=== PATIENT | male | born 1965 | race Two or more races ===

== ENCOUNTER 2018-03-24 10:45 | Emergency (ER) | payer OTHER ==
[~2018-03-24] VITALS: Ht 180.3 cm; Wt 84.8 kg
[2018-03-24 11:04] VITALS: BP 132/88
[2018-03-24] MEDS ORDERED: Ketorolac 30mg Inj IM ONE (11:30)
[2018-03-24] MEDS ORDERED: Methocarbamol 750mg tab ORAL ONE (11:30)
[2018-03-24] MEDS ORDERED: LIDODERM700 M1 TOPIC (11:41)
[2018-03-24] MEDS ORDERED: ROBAXIN-750750 MG PO (11:41)
[2018-03-24] MEDS ORDERED: IBUPROFEN600 MG ORAL (11:41)
[2018-03-24] MEDS ORDERED: NORCO 5-325 TA1 EACH ORAL (11:41)
[2018-03-24 11:59] VITALS: BP 132/88
--- NOTE | 2018-03-24 13:02 | Emergency Room Report ---
History of Present Illness General Chief Complaint: Back Pain-No Injury Source: Patient Present Illness HPI 52-year-old male presents ED complaining of back pain. Started 2 days ago. Denies any injury. Pain is dull, 8 out of 10, nonradiating. Worse with bending and twisting. Denies any bowel or bladder incontinence. Denies any leg or motor weakness. No other aggravating relieving factors. Denies any other associated symptoms Allergies: Coded Allergies: No Known Allergies (Unverified , 03/24/18) Patient History Past Medical History: none Past Surgical History: none Pertinent Family History: none Social History: Denies: smoking, alcohol use, drug use Immunizations: UTD Reviewed Nursing Documentation: PMH: Agreed; PSxH: Agreed Nursing Documentation-PMH Past Medical History: No Stated History Review of Systems All Other Systems: negative except mentioned in HPI Physical Exam Vital Signs Date Time Temp Pulse Resp B/P (MAP) Pulse Ox O2 Delivery O2 Flow Rate FiO2 03/24/18 10:48 98.0 64 18 132/88 97 Room Air 98.1 Sp02 EP Interpretation: reviewed, normal General Appearance: no apparent distress, alert, GCS 15, non-toxic Head: normocephalic, atraumatic Eyes: bilateral eye normal inspection, bilateral eye PERRL ENT: hearing grossly normal, normal pharynx, no angioedema, normal voice Neck: full range of motion, supple/symm/no masses Respiratory: chest non-tender, lungs clear, normal breath sounds, speaking full sentences Cardiovascular #1: regular rate, rhythm, no edema Cardiovascular #2: 2+ carotid (R), 2+ carotid (L), 2+ radial (R), 2+ radial (L) , 2+ dorsalis pedis (R), 2+ dorsalis pedis (L) Gastrointestinal: normal bowel sounds, non tender, soft, non-distended, no guarding, no rebound Rectal: deferred Genitourinary: normal inspection, no CVA tenderness, no vertebral tenderness Musculoskeletal: back normal, gait/station normal, normal range of motion, tender - paraspinal lumbar tenderness Neurologic: alert, oriented x3, responsive, motor strength/tone normal, SLR negative, sensory intact, speech normal Psychiatric: judgement/insight normal, memory normal, mood/affect normal, no suicidal/homicidal ideation Reflexes: 3+ bicep (R), 3+ bicep (L), 3+ tricep (R), 3+ tricep (L), 3+ knee (R) , 3+ knee (L) Skin: normal color, no rash, warm/dry, well hydrated Lymphatic: no adenopathy Medical Decision Making Diagnostic Impression: Primary Impression: Back pain Qualified Codes: M54.5 - Low back pain ER Course Hospital Course 52-year-old male presents ED complaining of lower back pain. No evidence of trauma Differential diagnoses include: pyelonephritis, kidney stone, muscle strain, Lspine fracture Clinical course Patient placed on stretcher. After initial history, physical exam reveals a middle-aged male in no acute distress. There is no vertebral body tenderness. There is paraspinal lumbar tenderness bilaterally. Negative straight leg raise. 5 out of 5 motor strength bilaterally. Discussed findings with the patient. No indication for imaging at this time. No neurological deficits. No trauma. We will attempt conservative management with NSAIDs, lidocaine patch, muscle relaxers. Patient given Toradol, Robaxin in ED. Recommend close follow-up with PMD Diagnosis - back pain Stable and discharged to home with prescription for Motrin, Robaxin, Lidoderm patch. Followup with PMD. Return to ED if symptoms recur or worsen Last Vital Signs Date Time Temp Pulse Resp B/P (MAP) Pulse Ox O2 Delivery O2 Flow Rate FiO2 03/24/18 11:59 98.1 18 132/88 97 Room Air 208.6 03/24/18 10:48 64 Status: improved Disposition: HOME, SELF-CARE Condition: Stable Scripts Hydrocodone Bit/Acetaminophen 5-325* ([place] 5-325*) 1 Each Tablet 1 TAB ORAL Q6H PRN for For Pain, #10 TAB 0 Refills Prov: Ronan Leonard MD 03/24/18 Lidocaine (Lidoderm) 1 Each Adh..patch 1 PATCH TOPIC DAILY, #7 PATCH 0 Refills Patch(es) may remain in place for up to 12 hours in any 24-hour period. Prov: Ronan Leonard MD 03/24/18 Methocarbamol* (ROBAXIN-750*) 750 Mg Tablet 750 MG PO TID, #21 TAB 0 Refills Prov: Ronan Leonard MD 03/24/18 Ibuprofen* (MOTRIN*) 600 Mg Tablet 600 MG ORAL Q8H PRN for For Pain, #30 TAB 0 Refills Prov: Ronan Leonard MD 03/24/18 Referrals: [facility],REFERRING (PCP) NOT CHOSEN [facility],REFERRING Departure Forms: Return to Work Return to Work Date: Mar 26, 2018 Work Restrictions: No Heavy Lifting Patient Instructions: Back Pain, Adult Ronan Leonard MD Mar 24, 2018 13:02
== END 2018-03-24 11:59 | disposition home or self-care (01) ==
LOC: EMR 11:31
DX: M54.5 Low back pain (principal)
CPT/HCPCS: 96372; 99284; J1885

== ENCOUNTER 2018-08-08 06:18 | Day surgery (SDC) | payer OTHER ==
[~2018-08-08] VITALS: Ht 180.3 cm; Wt 83.5 kg
[2018-08-08] VITALS (10 sets, daily range): BP systolic 103–129; BP diastolic 64–85
[~2018-08-08 06:18] MED LIST: IBUPROFEN600 MG ORAL; LIDODERM700 M1 TOPIC; NORCO 5-325 TA1 EACH ORAL; ROBAXIN-750750 MG PO
--- NOTE | 2018-08-08 06:37 | Anethesia Preoperative Eval ---
Anesthesia Pre-op PMH/ROS General Date of Evaluation: Aug 08, 2018 Time of Evaluation: 06:36 Anesthesiologist: nile ASA Score: ASA 1 Mallampati Score Class I : Soft palate, uvula, fauces, pillars visible Class II: Soft palate, uvula, fauces visible Class III: Soft palate, base of uvula visible Class IV: Only hard plate visible Mallampati Classification: Class II Surgeon: iam Diagnosis: colon screening Surgical Procedure: colonoscopy Anesthesia History: none Social History: smoking - nonsmoker Family History: no anesthesia problems Allergies: Coded Allergies: No Known Allergies (Unverified , 03/24/18) Medications: see eMAR Patient NPO?: Yes Anesthesia Pre-op Phys. Exam Physician Exam Constitutional: NAD Neurologic: CN 2-12 intact Cardiovascular: RRR Respiratory: CTA Gastrointestinal: S/NT/ND Airway Exam Mallampati Score: Class II MO: full Neck: supple TMD: 2fb ROM: full Teeth: intact Anesthesia Pre-op A/P Risk Assessment & Plan Assessment: asa1 Plan: mac Pre-Antibiotics Drug: Megha Vaz MD Aug 08, 2018 06:37
[2018-08-08] MEDS ORDERED: DiphenhydrAMINE 50mg/ml Inj IVP PRN (06:45)
[2018-08-08] MEDS ORDERED: Midazolam 2mg/2ml Inj IVP PRN (06:45)
[2018-08-08] MEDS ORDERED: Atropine Inj 1mg/10ml Syr IV PRN (06:45)
[2018-08-08] MEDS ORDERED: fentaNYL 100 mcg/2 mL IV PRN (06:45)
[2018-08-08] MEDS ORDERED: Propofol 200mg/20ml IV ONE (06:55)
[2018-08-08] MEDS ORDERED: LR 1000ml ONE (06:55)
[2018-08-08] MEDS ORDERED: Lidocaine 1% MPF 10mg/ml 5ml ONE (06:55)
[2018-08-08] MEDS ORDERED: NKM (06:55)
[2018-08-08] MEDS ORDERED: LR 1000ml 1,000 ML IVLG SCH (07:00)
--- NOTE | 2018-08-08 07:16 | Short Stay Surgery H&P ---
History of Present Illness History of Present Illness Chief Complaint See typed H&P HPI Sukh Aguilar is a 52 year old male who was admitted on for Screening Patient History Allergies: Coded Allergies: No Known Allergies (Unverified , 03/24/18) Medication History Scheduled No Known Medications* (NKM - No Known Medications*), 0 ., (Reported) Discontinued Medications Hydrocodone Bit/Acetaminophen 5-325* ([place] 5-325*), 1 TAB ORAL Q6H PRN for For Pain Discontinued Reason: Pt stopped taking med Ibuprofen* (Motrin*), 600 MG ORAL Q8H PRN for For Pain Discontinued Reason: Pt stopped taking med Lidocaine (Lidoderm), 1 PATCH TOPIC DAILY Discontinued Reason: Pt stopped taking med Methocarbamol* (Robaxin-750*), 750 MG PO TID Discontinued Reason: Pt stopped taking med Physical Exam Vital Signs Last Vital Signs Date Time Temp Pulse Resp B/P (MAP) Pulse Ox O2 Delivery O2 Flow Rate FiO2 08/08/18 06:56 Room Air 08/08/18 06:55 97.3 61 20 129/85 98 Plan Attestation Are the patient's medical conditions optimized for surgery? Ly Chamorro MD Aug 08, 2018 07:16
--- NOTE | 2018-08-08 07:16 | Pre-Procedure Note/Attestation ---
Pre-Procedure Note/Attestation Complete Prior to Procedure Planned Procedure: not applicable Procedure Narrative: colon Indications for Procedure Pre-Operative Diagnosis: screening Attestation I attest that I discussed the nature of the procedure; its benefits; risks and complications; and alternatives (and the risks and benefits of such alternatives ), prior to the procedure, with the patient (or the patient's legal housing management representative). I attest that, if there was a reasonable possibility of needing a blood transfusion, the patient (or the patient's legal housing management representative) was given the [facility] standardized written summary, pursuant to the [place] Blood Safety Act ([place] Health and Safety Code # 1645, as amended). I attest that I re-evaluated the patient just prior to the surgery and that there has been no change in the patient's H&P, except as documented below: Ly Chamorro MD Aug 08, 2018 07:15
--- NOTE | 2018-08-08 07:45 | Endoscopy Procedure Note ---
Endoscopy Procedure Note General Indication for Procedure: screening Procedures Performed: colonoscopy Operative Findings/Diagnosis: normal, including 5 cm TI Specimen: none Pt Tolerated Procedure Well: Yes Estimated Blood Loss: none Anesthesia Anesthesiologist: Toan Pereira Anesthesia: MAC, moderate sedation Medications Medication Given: see anesthesia record Inserted Devices Implant(s) used?: No GI Core Measures 50 yrs or older w/o bx or poly: Yes 10yrs. F/U not recommended: Yes If not recommended, why?: 10 yrs. F/U needed: Yes 18 years or older w/prev. colo: No <3yrs. since last colonoscopy: No Med reason:<3 yrs.: System Reason:<3 yrs.: Last colonoscopy >= to 3yrs: Yes Ly Chamorro MD Aug 08, 2018 07:45
--- NOTE | 2018-08-08 07:46 | Brief Operative Note ---
Immediate Post Operative Note Operative Note Chief Complaint: Screen Pre-op Diagnosis: screening Procedure: colon Post-op Diagnosis: normal, including cm TI Surgeon: iam Anesthesiologist: Toan Pereira Anesthesia: MAC Specimen: none Complications: yes Condition: stable Fluids: recorded Estimated Blood Loss: none Drains: none Implant(s) used?: No Ly Chamorro MD Aug 08, 2018 07:46
--- NOTE | 2018-08-08 13:06 | Immediate Post-Op Evaluation ---
Immediate Post-Op Evalulation Immediate Post-Op Evalulation Procedure: colonoscopy Date of Evaluation: Aug 08, 2018 Time of Evaluation: 07:54 IV Fluids: 200ml lr Blood Products: none Estimated Blood Loss: negligible Blood Pressure Systolic: 104 Blood Pressure Diastolic: 70 Pulse Rate: 60 Respiratory Rate: 18 O2 Sat by Pulse Oximetry: 100 Temperature (Fahrenheit): 97.0 Pain Score (1-10): 0 Nausea: No Vomiting: No Complications none Patient Status: awake, reacts, patent Hydration Status: adequate Drug: Megha Vaz MD Aug 08, 2018 13:06
--- NOTE | 2018-08-08 13:08 | 48 Hour Post Anesthesia Eval ---
Post Anesthesia Evaluation Procedure: colonoscopy Date of Evaluation: Aug 08, 2018 Time of Evaluation: 07:56 Blood Pressure Systolic: 110 0: 64 Pulse Rate: 65 Respiratory Rate: 18 Temperature (Fahrenheit): 97.0 O2 Sat by Pulse Oximetry: 100 Airway: patent Nausea: No Vomiting: No Pain Intensity: 0 Hydration Status: adequate Cardiopulmonary Status: stable Mental Status/LOC: patient returned to baseline Post-Anesthesia Complications: none Follow-up care needed: N/A Megha Hammer MD Aug 08, 2018 13:08
--- NOTE | 2018-08-08 16:00 | Procedure Note ---
DATE OF PROCEDURE: 08/08/2018 PROCEDURE: Screening colonoscopy. SURGEON: Ly Chamorro M.D. ANESTHESIOLOGIST: Megha Ramos M.D. PRE-ENDOSCOPIC DIAGNOSIS: Screening. POST-ENDOSCOPIC DIAGNOSIS: Normal colonoscopy. DESCRIPTION OF PROCEDURE: The procedure, its risks, indications, alternatives, and possible complications including, but not limited to bleeding, infection, perforation, , and anesthesia complications were explained to the patient and informed consent was obtained. The patient was then sedated in the left lateral decubitus position and a rectal exam was done, which was normal. The colonoscope was introduced into the rectum and advanced to the terminal ileum for about 5 cm into it. The terminal ileal mucosa was normal. Examination of colonic mucosa revealed no abnormalities. Specifically, there were no polyps or diverticulosis. Retroflexed view of the rectum was unremarkable. The colonoscope was removed and the patient was sent to recovery in good condition. COMPLICATIONS: None. RECOMMENDATIONS: 1. Resume oral diet. 2. Follow up with primary physician. 3. Repeat colonoscopy in 10 years. Thank you for asking me to participate in the care of this patient. Ly Chamorro M.D. DR: JUSTINE JOB#: [id number] CC: Ly Chamorro M.D.; Fax#: [phone]
== END 2018-08-08 09:10 | disposition home or self-care (01) ==
LOC: GAS 06:18
DX: Z12.11 Encounter for screening for malignant neoplasm of colon (principal)
CPT/HCPCS: 45378; J2704; 94003; 94150